=== PATIENT | female | born 1980 | race African-American/Black ===

== ENCOUNTER 2023-09-21 03:39 | Emergency (ER) | payer MEDICAID ==
[~2023-09-21] VITALS: Ht 162.6 cm; Wt 125.0 kg
[2023-09-21 03:40] VITALS: TEMP 97.8; O2SAT 97
[2023-09-21] MEDS: EPINEPHRINE 1:1000 1 MG/ML AMP SUBCUT ONE (04:15)
[2023-09-21] MEDS: DEXAMETHASONE 10 MG/ML VIAL IV ONE (04:15)
[2023-09-21] MEDS: SODIUM CHLORIDE 0.9% 1,000 ML IV SCH (04:16)
[2023-09-21 04:17] VITALS: BP 133/82; PULSE 73; RESP 18
[2023-09-21] MEDS: FAMOTIDINE 20MG/2ML VIAL IV ONE (04:38)
[2023-09-21 04:41] LABS: EOSINOPHILS % 1.2 % (0.0-5.0); HEMATOCRIT. 37.6 % (36.0-48.0); HEMOGLOBIN. 13.4 g/dL (12.0-16.0); MEAN CORPUSCULAR HEMOGLOBIN 28.8 pg (28.0-32.0); MEAN CORPUSCULAR HGB CONC 35.7 g/dL (31.0-37.0); MEAN CORPUSCULAR VOLUME 80.6 fL (81.0-99.0); MEAN PLATELET VOLUME 9.1 fl (7.4-10.4); MONOCYTES % 5.2 % (2.0-8.0); NEUTROPHILS % 67.6 % (40.0-76.0); PLATELET 204 x1000/uL (130-400); RED BLOOD CELL COUNT 4.67 mill/uL (4.2-5.4); RED CELL DISTRIBUTION WIDTH 15.3 % (11.6-14.6); WHITE BLOOD COUNT 7.8 x1000/uL (4.5-11.0)
[2023-09-21 04:56] LABS: ALANINE AMINOTRANSFERASE 31 IU/L (10-49); ALBUMIN 3.9 g/dL (3.2-4.8); ASPARTATE AMINOTRANSFERASE 22 IU/L (<34); BILIRUBIN TOTAL 0.4 mg/dL (0.1-1.0); CALCIUM 8.3 mg/dL (8.7-10.4); CARBON DIOXIDE 25 mEq/L (21-32); CHLORIDE 107 mEq/L (98-107); CREATININE 0.8 mg/dL (0.6-1.0); GLUCOSE 86 mg/dL (70-105); POTASSIUM 3.3 mEq/L (3.5-5.1); PROTEIN TOTAL 6.5 g/dL (6.0-8.3); SODIUM 138 mEq/L (136-145); UREA NITROGEN BLOOD 12 mg/dL (9-23)
[2023-09-21] MEDS ORDERED: B50 MT (05:36)
[2023-09-21] MEDS ORDERED: P20 MT (05:36)
[2023-09-21] MEDS ORDERED: EPIN0.1519 IM (05:36)
== END 2023-09-21 06:12 | disposition home or self-care (01) ==
LOC: ER 04:27
DX: T78.3XXA Angioneurotic edema, initial encounter (principal); X58.XXXA Exposure to other specified factors, initial encounter; D64.9 Anemia, unspecified
CPT/HCPCS: 80053; 85025; 36415; 96361; 96372; 96374; 96375; 99291; J1100; J3490 ×2; Z7610 ×2